=== PATIENT | female | born 1995 | race Caucasian/White ===

== ENCOUNTER 2018-01-06 18:40 | Emergency (ER) | payer MEDICAID, OTHER ==
[2018-01-06] MEDS ORDERED: Lidocaine 1% PF 5 ML VIAL ONE (19:07)
[2018-01-06] MEDS ORDERED: Azithromycin 250 MG TAB ONE (19:07)
[2018-01-06] MEDS ORDERED: cefTRIAXone\\ROCEPHIN 250 MG VIAL ONE (19:07)
[2018-01-06 19:18] LABS: Pregnancy Test - Urine (BHCG) Negative (Negative); Pregu Control Background? CLEAR/WHITE (CLR/WHITE); Pregu Control Bar Appear? YES (CONTROL BAR); Specific Gravity 1.028 (1.002-1.036)
== END 2018-01-06 19:30 | disposition home or self-care (01) ==
LOC: SCSER 18:40
DX: Z11.3 Encounter for screening for infections with a predominantly sexual mode of transmission (principal); F41.9 Anxiety disorder, unspecified; F17.210 Nicotine dependence, cigarettes, uncomplicated
CPT/HCPCS: 81025; 87491; 87591; 96372; J0696; J2001

== ENCOUNTER 2018-08-22 12:03 | Emergency (ER) | payer OTHER, SELFPAY ==
[2018-08-22 12:40] LABS: #Lymphocytes 0.5 thou/uL (1.20-3.40); #Monocytes 0.5 thou/uL (0.11-0.59); #Neutrophils 3.3 thou/uL (1.40-6.50); %Basophils 0.3 % (0.0-1.0); %Eosinophils 0.5 % (0.0-10.0); %Lymphocytes 10.4 % (21.0-51.0); %Monocytes 12.5 % (0.0-10.0); %Neutrophils 76.3 % (42.0-75.0); Hemoglobin 14.3 g/dL (12.0-16.0); Mean Corpuscular HGB CONC 33.2 g/dL (32.0-36.0); Mean Corpuscular Hemoglobin 29.1 pg (27.0-31.0); Mean Corpuscular Volume 87.8 fL (78.0-98.0); Mean Platelet Volume 6.9 fL (7.4-10.4); Platelet Count 253 thou/uL (130-400); RBC Distribution Width 12.2 % (11.5-14.5); Red Blood Cell (RBC) Count 4.93 mill/uL (4.20-5.40); White Blood Cell (WBC) Count 4.3 thou/uL (4.8-10.8)
[2018-08-22 12:49] LABS: ALT (SGPT) 19 U/L (8-55); AST (SGOT) 22 U/L (5-34); Albumin 4.4 g/dL (3.5-5.0); Alkaline Phosphatase 78 U/L (40-150); Anion Gap 17 mmol/L (10-20); BUN (Urea Nitrogen) 14 mg/dL (7.0-18.7); Bilirubin, Total 1.1 mg/dL (0.2-1.2); Calc. Creatinine Clearance 0 mL/min (70-130); Calcium 9.3 mg/dL (7.8-10.44); Carbon Dioxide 19 mmol/L (22-29); Chloride 101 mmol/L (98-107); Estimated GFR-MDRD Greater than 90; Globulin 3.3 g/dL (2.4-3.5); Glucose 94 mg/dL (70-105); Lipase 11 U/L (8-78); Protein, Total 7.7 g/dL (6.0-8.3); Sodium 133 mmol/L (136-145)
[2018-08-22 14:37] LABS: BHCG - Serum POSITIVE (NEGATIVE); Pregs Control Background? CLEAR/WHITE (CLR/WHITE); Pregs Control Bar Appear? YES (CONTROL BAR)
[2018-08-22] MEDS ORDERED: Ondansetron PF 4 MG/2 ML Vial ONE (16:01)
--- NOTE | 2018-08-22 16:08 | ULT ---
TRANSVAGINAL PELVIS ULTRASOUND: HISTORY: Pain. COMPARISON: None. TECHNIQUE: Real-time medina-scale color Doppler and spectral analysis of the pelvis was performed, transabdominal approach. FINDINGS: The uterus measures 9.1 x 9.8 x 8.3 cm. The right ovary is not seen. The left ovary measures 2.5 x 1.8 x 1.9 cm with antegrade vascular flow. There is a single viable intrauterine with an average ultrasound age of 10 weeks 0 days and an estimated date of delivery of 03/20/2019. [place]-rump length measures 3.86 cm (10 weeks 5 days). Gestational sac diameter is 3.87 cm (9 weeks 2 days). heart rate documented at 180 beats per minute. Small volume free fluid in the vaginal canal. The cervix is closed. IMPRESSION: Single viable intrauterine with an average ultrasound age of 10 weeks 0 days and an estimat ed date of delivery of 03/20/2019. POS: [facility]
== END 2018-08-22 17:00 | disposition home or self-care (01) ==
LOC: ERS 12:03
DX: O99.611 Diseases of the digestive system complicating pregnancy, first trimester (principal); K52.9 Noninfective gastroenteritis and colitis, unspecified; O99.411 Diseases of the circulatory system complicating pregnancy, first trimester; I34.0 Nonrheumatic mitral (valve) insufficiency; F41.9 Anxiety disorder, unspecified; F32.9 Major depressive disorder, single episode, unspecified; F17.210 Nicotine dependence, cigarettes, uncomplicated; Z3A.10 10 weeks gestation of pregnancy
CPT/HCPCS: 36415; 76856; 80053; 83690; 84702; 84703; 85025; 93976; 96361; 96374; J2405

== ENCOUNTER 2019-02-14 13:15 | Day surgery (SDC) | payer OTHER ==
[2019-02-14 13:52] VITALS: BP 111/67; TEMP 98.1; BMI 25.7
[2019-02-14 14:28] LABS: Bilirubin Negative (Negative); Blood, Urine Negative (Negative); Clarity CLEAR (Clear); Glucose, Urine (Dipstick) Negative (Negative); Leukocyte Trace (Negative); Nitrite Negative (Negative); Protein, Urine (Dipstick) Negative (Neg-Trace); pH, Urine 7.5 (5.0-9.0)
[2019-02-14 14:29] LABS: Bacteria/HPF Rare-Few HPF (None Seen); Hyaline Casts/LPF 0-3 HYALINE CAST LPF (0-3 Hyaline); Pathc Cast-AUWi Flag 0.13 (0-2.49); RBC/HPF 0-3 HPF (0-3); Squamous Epithelial 0-3 HPF (0-3); WBC/HPF 0-3 HPF (0-3)
--- NOTE | 2019-02-15 06:14 | SS ---
DATE OF ADMISSION: 02/14/2019 DATE OF DISCHARGE: 02/14/2019 EVALUATING PHYSICIAN: Ricardo Landis MD CHIEF COMPLAINT: Contractions. HISTORY OF PRESENT ILLNESS: Ms. Brenner is a 23-year-old white G3, P2 with estimated date of confinement of 03/24/2018, who presents complaining of contractions at approximately noon today. Of note is the fact that she had intercourse at approximately 11:00 a.m. She denies ruptured membranes, vaginal bleeding, or urinary tract symptoms. Her initial care was with Dr. Foley, but she left that practice and has been trying to get in with Dr. Abdi, but to no avail. PAST OBSTETRICAL HISTORY: Includes 2 vaginal deliveries, one at term and another one at 36 weeks. PAST MEDICAL HISTORY: Includes reported heart murmur as well as anxiety. PAST SURGICAL HISTORY: None. CURRENT MEDICATIONS: vitamins and BuSpar. ALLERGIES: NO KNOWN ALLERGIES. SOCIAL HISTORY: She smokes half a package of cigarettes per day. She denies illicit drug use. FAMILY HISTORY: Unremarkable. REVIEW OF SYSTEMS: She denies nausea, vomiting, fever, chills, ruptured membranes, or vaginal bleeding. PHYSICAL EXAMINATION: VITAL SIGNS: Vital signs in triage are stable. She is afebrile. GENERAL: She is pleasant, in no acute distress. ABDOMEN: Soft, nontender, and gravid. PELVIC: Shows the cervix to be closed, approximately 50% effaced in mid position. heart rate tracing is stable. There are no decelerations. Irritability seen. No significant uterine contractions are noted. LABORATORY STUDIES: Urinalysis returned showing a specific gravity of 1.010, negative protein, negative glucose, negative ketones, negative blood, negative nitrites with only a trace of leukocyte esterase. On microscopic, there are 0-3 rbc's, 0-3 wbc's, 0-3 squamous cells with rare bacteria. ASSESSMENT: 1. A 34 and 4/7th week intrauterine . 2. No evidence of labor at this time. PLAN: The patient will be discharged to home. I did speak with Dr. Ariana Castaneda of the residency program who will attempt to get her an appointment there so that she can begin care again. She was also advised to stop smoking. labor precautions were given prior to her discharge. Job ID: [id number]
== END 2019-02-14 14:55 | disposition home or self-care (01) ==
LOC: L&D/OP 13:15
PROVIDERS: ATTEND Obstetrics & Gynecology
DX: O47.03 False labor before 37 completed weeks of gestation, third trimester (principal); O99.333 Smoking (tobacco) complicating pregnancy, third trimester; F17.210 Nicotine dependence, cigarettes, uncomplicated; O99.343 Other mental disorders complicating pregnancy, third trimester; F41.9 Anxiety disorder, unspecified; O99.89 Other specified diseases and conditions complicating pregnancy, childbirth and the puerperium; R01.1 Cardiac murmur, unspecified; Z79.899 Other long term (current) drug therapy; Z3A.34 34 weeks gestation of pregnancy
CPT/HCPCS: 36415; 81003; 81015; 99283

== ENCOUNTER 2019-03-06 15:44 | Inpatient (IN) | payer OTHER ==
[~2019-03-06 15:44] MED LIST: Bupivacaine/Epinephrine 0.25% 30 ML VIAL ONE
[2019-03-06 16:14] VITALS: BMI 25.6
--- NOTE | 2019-03-06 17:35 | PDOC.FPROB ---
FMR OB H&P: HPI - History of Present Illness Chief Complaint: Vaginal bleeding/spotting Indentification: 23 year old at 38.0 wks by 10 wk sono History of Present Illness: 23 year old at 38.0 wks by 10.0 wk sono presents with spotting which she noticed after using the restroom approximately 1 hour prior to arrival. Patient states that she noticed the brown discharge on toilet paper when wiping. Patient denies any vaginal bleeding prior to this. Patient denies LoF, contractions. She endorses good movement. Patient denies dysuria, headache , vision changes, abdominal pain, or fever. She states that she was never treated for her BV earlier in the . 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 She smokes 5 cig/day to 1 pack per day. Denies EtOH use. Patient endorses THC use in 1/2T. - Family History Family History: HTN Lung Cancer FOB - CP, autism FMR OB H&P: Medications - Current Home Medications: Medication Instructions Recorded Confirmed Type Vit,Calc78/Iron/Folic 1 tablet PO DAILY 06/10/15 02/14/19 History [Prenatabs FA Tablet] Allergies/Adverse Reactions: Allergies Allergy/AdvReac Type Severity Reaction Status Date / Time No Known Allergies Allergy Verified 08/19/15 01:36 FMR OB H&P: ROS - Review of Systems General: denies: fever/chills, weight/appetite/sleep changes Eyes: denies: vision changes, scotomas ENT: reports: nasal congestion. denies: rhinorrhea, sore throat Cardiovascular: denies: chest pain, palpitation, edema Respiratory: denies: cough, congestion, shortness of breath Gastrointestinal: denies: abdominal pain, bloating, nausea, vomiting, diarrhea, constipation Genitourinary (Female): reports: vaginal discharge, vaginal bleeding. denies: dysuria, contractions, vaginal pressure Musculoskeletal: denies: pain Neurologic: denies: numbness, seizures, weakness Integumentary: denies: itching, rash Psychological: reports: anxiety. denies: depression FMR OB H&P: Vital Signs - Maternal Vital signs: BP113/77 Pulse 76 98.8F - Heart Tones Baseline: 130 Variability: moderate Acceleration: present Deceleration: variable Category: category 2 [place] contractions every: Irregular FMR OB H&P: Physical Exam - Physical Exam General: NAD, awake, alert and oriented HEENT: MMM, grossly normal vision, grossly normal hearing Breast: non-tender Heart: RRR Deviation from normal: 2/6 systolic murmur General: CTAB, no respiratory distress Abdomen: soft, gravid Musculoskeletal: pulses present, FROM in all four extremities Neurological: no tremor, no focal deficit Skin: no rash, capillary refill <2 seconds Lymphatic: no unusual bruising or bleeding Psychiatric: intact recent and remote memory, normal mood and affect - Pelvic Exam Vulva: normal hair distribution Cervix: no lesions SVE: At 16:15 by Yeny 1/thick/high Presentation: Cephalic Estimated Weight: 6 lbs FMR OB H&P: A/P - Problem List (1) Term Current Visit: Yes Status: Acute Code(s): Z34.90 - ENCNTR FOR SUPRVSN OF NORMAL , UNSP, UNSP TRIMESTER (2) Vaginal spotting Current Visit: Yes Status: Acute Code(s): N93.9 - ABNORMAL UTERINE AND VAGINAL BLEEDING, UNSPECIFIED Disposition: 23 year old at 38.0 wks by 10.0 wk sono presents with vaginal spotting 1. TIUP - Category II strip with variables, NST indeterminate - Will proceed with BPP to evaluate - 2h obs, may possibly d/c home if only variables on strip and BPP 04/13 - Cervical exam: 1/thick/high, very minimal brown discharge noted on glove with check - Will recheck cervix at 2h 2. 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 encouraging to apple picking supervisor medication from pharmacy if d/c'd 3. Congenital murmur - Patient sen by pediatric Cardiology from ages 6-8 - States they wanted to do surgery but Aunt did not want her to get it done since there was a chance it would resolve - Patient has been asymptomatic and is able to be active with no complications 4. Late transfer of care - Prior care at [facility] 5. Hx of tobacco use - Encouraged cessation during 6. Marijuana use - Most recent UDS negative 7. Hx of GC - Negative during this 8. FOB FH: CP, autism 9. BRAD - On buspirone intermittently during (noncompliant) - Reports well controlled currently Discussion: Date/Time: 03/06/19 4541 This H&P was discussed with Dr. Lewis who agrees with the above documentation and plan. OBGYN Faculty: BPP was 04/13, but on looking at recent sono from the [facility]...EFW was 1%- tile...isolated IUGR. Per ACOG Bulletin, delivery recommended at 38 weeks. I have discussed this with the pateint and her partner. She is think and a smoker but unsure if that is enough to result in this level of IUGR. She does state HX Marijuana use. We will order a UDS for eval. Case D/U RN team as well as Dr Bordne. Reviewed with Dr Saini Signature: Darlin Saini, DO PGY-3
[2019-03-06] MEDS ORDERED: hydrALAZINE 20 MG/ML VIAL SLOW IVP PRN ×2 (17:40→20:02)
[2019-03-06 17:52] LABS: Bilirubin Negative (Negative); Blood, Urine Negative (Negative); Clarity CLEAR (Clear); Glucose, Urine (Dipstick) Negative (Negative); Leukocyte Negative (Negative); Nitrite Negative (Negative); Protein, Urine (Dipstick) Negative (Neg-Trace); Urobilinogen 0.2 mg/dL (0.2-1.0)
[2019-03-06 17:54] LABS: Bacteria/HPF None Seen HPF (None Seen); Hyaline Casts/LPF 0-3 HYALINE CAST LPF (0-3 Hyaline); RBC/HPF 0-3 HPF (0-3); Squamous Epithelial None Seen HPF (0-3); WBC/HPF 0-3 HPF (0-3)
--- NOTE | 2019-03-06 18:18 | PDOC.EVN ---
Event Note - Event Note Event Note: OBGYN Faculty H&P Attestation note Time: 1814 Cc: spotting HPI: Patient of the [facility], here for spotting. She is a 23 yo last one was term, but first was around 36 weeks. EGA now 38 weeks. No LOF, no VB, good FM. Review of Systems: past HX anxiety on meds PRN (Buspirone); HX childhood cardiac murmur...no meds, nocards follow up. [place] Heart class I Past med: HX anxiety, past murmur- ASX Past surg: none Allergies: none OB Hx: no CS Physical: 113/77 afebrile P76 NAD soft NT abd no VB no LOF CX= / Monitor: rate at 140s with great variability, accels, but noted sporadic decels [place]: rare CTX Assessment and Plan: Early term with spotting...no evidence labor. We will order BPP to assess occ decels If decels continue, may need IOL
[2019-03-06] MEDS ORDERED: Lactated Ringer's 1,000 ML IV SCH (18:45)
--- NOTE | 2019-03-06 19:52 | ULT ---
US Biophysical Profile: 03/06/2019 6:14 PM CLINICAL HISTORY: Variable decelerations and equivocal stress test. COMPARISON: None. FINDINGS: heart rate: 130 bpm. ZENA: 10.7 cm Biophysical profile: 8 of 8 IMPRESSION: Normal biophysical profile
[2019-03-06] MEDS ORDERED: Promethazine HCl 25 MG/ML VIAL IM PRN ×2 (20:02→23:32)
[2019-03-06] MEDS ORDERED: Ondansetron PF 4 MG/2 ML Vial IVP PRN ×2 (20:02→23:32)
[2019-03-06] MEDS ORDERED: Acetaminophen 500 MG TAB PO PRN (20:02)
[2019-03-06] MEDS ORDERED: Butorphanol Tartrate 1 MG/ML VIAL SLOW IVP PRN (20:02)
--- NOTE | 2019-03-06 20:02 | PDOC.EVN ---
Event Note - Event Note Event Note: 03/06/2019 at 20:00 35.4 wk sono found in [facility] clinic records. [place] <1% with EFW 1826g. Risk factors for IUGR include smoking history. Will obtain UDS. Will plan for IOL for IUGR given patient is 38.0 wks. Notified [facility]ide Pot Tender, Dr. Draper who is aware of isolated IUGR. Will plan for balloon placement. Darlin Saini, DO PGY-3 OBGYN Fcaulty: EFW noted as under 1% tile. Communicated directly by me to Dr Borden. BPP 04/13..we will proceed with IUGR at this time. Reviewed with patient and partner.
[2019-03-06] MEDS ORDERED: Ibuprofen 800 MG TAB PO PRN (20:24)
[2019-03-06] MEDS ORDERED: Lidocaine 1% (PF) 30 ML VIAL SC PRN (20:24)
[2019-03-06] MEDS ORDERED: NS / Oxytocin 40 units/1000ml 1,000 ML IV PRN (20:24)
--- NOTE | 2019-03-06 21:13 | PDOC.LDPN ---
Labor & Delivery Progress Note - Subjective Subjective: comfortable (BP 116/72, pulse 72) - Objective Vital signs reviewed and normal: yes General: NAD Dilation: 1 Effacement: 0% Station: -3 FHT: category 1 (125/mod/no accel/no decel) [place] contractions every: sporadic - Assessment (1) Encounter for induction of labor Code(s): Z34.90 - ENCNTR FOR SUPRVSN OF NORMAL , UNSP, UNSP TRIMESTER Current Visit: Yes Status: Acute (2) IUGR (intrauterine growth restriction) Current Visit: Yes Status: Acute (3) Term Code(s): Z34.90 - ENCNTR FOR SUPRVSN OF NORMAL , UNSP, UNSP TRIMESTER Current Visit: Yes Status: Acute Plan: labor augmentation -: 23 year old at 38.0 wks by 10.0 wk sono presents with vaginal spotting and is admitted for IOL due to IUGR IOL for severe IUGR - Category I strip (previously had Cat 2 strip for variables) - BPP 8/8, [place] <1% with EFW 1826g - Cervical exam: 1/thick/high @ 2100, Cook balloon placed and filled to 40/40mL. - UDS pending Per package instructions: Balloon placed using sterile speculum to visualize cervix. Uterine balloon was dilated with 40mL. Vaginal balloon then dilated to 20mL. Verified correct placement, speculum removed. Another 20mL added to vaginal balloon. Plan to gradually increase inflation to 80/80mL.
[2019-03-06 21:38] LABS: Hemoglobin 12.4 g/dL (12.0-16.0); Mean Corpuscular HGB CONC 33.8 g/dL (32.0-36.0); Mean Corpuscular Hemoglobin 30.9 pg (27.0-31.0); Mean Corpuscular Volume 91.5 fL (78.0-98.0); Platelet Count 248 thou/uL (130-400); RBC Distribution Width 12.4 % (11.5-14.5); Red Blood Cell (RBC) Count 4.02 mill/uL (4.20-5.40); White Blood Cell (WBC) Count 10.6 thou/uL (4.8-10.8)
[2019-03-06 22:14] LABS: Syphilis Antibody Nonreactive (Nonreactive); Syphilis Antibody Index 0.02 S/CO (<1.00 Non-Reactive)
[2019-03-06] MEDS ORDERED: Fentanyl 4 mcg/Bup 0.1% Cadd 100 ML ONE (23:07)
[2019-03-06 23:26] LABS: HBSAg Index 0.24 S/CO (0-0.99); Hep B Surf Ag Non-Reactive S/CO (NonReactive)
[2019-03-06] MEDS ORDERED: Acetaminophen 325 MG TAB PO PRN (23:32)
[2019-03-06] MEDS ORDERED: Naloxone HCl 0.4 mg/ml Vial IVP PRN ×2 (23:32)
[2019-03-06] MEDS ORDERED: ePHEDrine/0.9% NaCl/PF SYRINGE 50 mg/10 ml SLOW IVP PRN (23:32)
[2019-03-06] MEDS ORDERED: diphenhydrAMINE 50 MG/ML VIAL IVP PRN (23:32)
[2019-03-06] MEDS ORDERED: Lactated Ringer's 500 ML IV PRN (23:32)
[2019-03-06] MEDS ORDERED: Communication Order-Pharmacy FS SCH (23:45)
[2019-03-06] MEDS ORDERED: Fentanyl 4 mcg/Bupivacaine 0.1% Cassette 100 ML EPIDURAL SCH (23:45)
[2019-03-07 00:03] LABS: Amphetamine Not Detected (NotDetected); Barbiturates Screen Not Detected (NotDetected); Benzodiazepine Screen Not Detected (NotDetected); Cocaine Metabolite Screen Not Detected (NotDetected); Medtox Control Line Valid? VALID (VALID); Medtox Reader # READER 1; Methadone Not Detected (NotDetected); Methamphetamine Not Detected (NotDetected); Opiate Screen Not Detected (NotDetected); Oxycodone Screen Not Detected (NotDetected); Phencyclidine (PCP) Not Detected (NotDetected); THC/Cannabinoid Screen Not Detected (NotDetected); Tricyclic Screen Not Detected (NotDetected)
[2019-03-07] MEDS: Lactated Ringer's 1,000 ML IV SCH ×2 (00:40→04:53)
--- NOTE | 2019-03-07 01:15 | PDOC.LDPN ---
Labor & Delivery Progress Note - Subjective Subjective: comfortable, no concerns - Objective Vital signs reviewed and normal: yes General: NAD, resting Uterine fundus: non tender FHT: category 2, variability present, absent or minimal variables [place] contractions every: infrequent Other exam findings: cook's balloon in place - Assessment (1) Encounter for induction of labor Code(s): Z34.90 - ENCNTR FOR SUPRVSN OF NORMAL , UNSP, UNSP TRIMESTER Current Visit: Yes Status: Acute (2) IUGR (intrauterine growth restriction) Current Visit: Yes Status: Acute (3) Term Code(s): Z34.90 - ENCNTR FOR SUPRVSN OF NORMAL , UNSP, UNSP TRIMESTER Current Visit: Yes Status: Acute Plan: continue plan of care -: Plan: labor augmentation -: 23 yo at 38.0 wks by 10.0 wk sono presents with vaginal spotting, admitted for IOL due to IUGR IOL for severe IUGR - Generally Category I strip but 1 prolong decel down to 70s. Responded to maternal 02, repositioning, and fluid bolus. Will continue to monitor strip and d/c balloon if decels continue. Recheck in 2 hours (0330) - BPP 8/8, [place] <1% with EFW 1826g - Cook balloon still in place and filled to 80/80mL.
--- NOTE | 2019-03-07 04:29 | PDOC.LDPN ---
Labor & Delivery Progress Note - Subjective Subjective: comfortable - Objective Abnormal vital signs: BP 87/53 General: NAD, resting, breathing through contractions Uterine fundus: non tender SVE: 6/80/-1 Dilation: 6 Effacement: 75% Station: -1 FHT: category 2, variable decelerations [place] contractions every: 3-5 AROM: bloody fluid IUPC placed: yes FSE placed: yes - Assessment (1) Encounter for induction of labor Code(s): Z34.90 - ENCNTR FOR SUPRVSN OF NORMAL , UNSP, UNSP TRIMESTER Current Visit: Yes Status: Acute (2) IUGR (intrauterine growth restriction) Current Visit: Yes Status: Acute (3) Term Code(s): Z34.90 - ENCNTR FOR SUPRVSN OF NORMAL , UNSP, UNSP TRIMESTER Current Visit: Yes Status: Acute Plan: continue plan of care -: 23 yo at 38.0 wks by 10.0 wk sono presents with vaginal spotting, admitted for IOL due to IUGR IOL for severe IUGR - Category 2 strip with multiple variables and prolonged Deceleration. Cook's Balloon pulled and repositioned to hands and knees. -Maternal repositioning, IVF and O2 as needed for Cat 2 strips and variables. - Will continue to monitor strip. Recheck in 2 hours (06:00) - BPP 8/8, [place] <1% with EFW 1826g SROM at 03:50, with bloody fluid. 6/80%/-1 Contractions every 3-5 minutes. FSE and IUPC in place. FHR 120's now, with moderate variability and variables.
[2019-03-07] MEDS ORDERED: Oxytocin 10 UNITS/ML VIAL ONE (06:41)
[2019-03-07] MEDS ORDERED: Ondansetron PF 4 MG/2 ML Vial ONE (06:41)
[2019-03-07] MEDS ORDERED: MORPHINE 5 MG/10 ML PF VIAL ONE (06:41)
[2019-03-07] MEDS ORDERED: Dexamethasone 4 mg/ml Vial ONE (06:41)
[2019-03-07] MEDS ORDERED: Ketorolac Tromethamine 30 MG/ML VIAL ONE (06:44)
[2019-03-07] MEDS ORDERED: Lidocaine 1% (PF) 30 ML VIAL ONE (06:46)
[2019-03-07] MEDS ORDERED: ePHEDrine/0.9% NaCl/PF SYRINGE 50 mg/10 ml ONE (06:57)
[2019-03-07] MEDS ORDERED: Phenylephrine HCL 10 MG/ML VIAL ONE (06:57)
[2019-03-07] MEDS: Ketorolac Tromethamine 30 MG/ML VIAL IVP SCH ×3 (07:05→19:53)
[2019-03-07 07:12] LABS: pH (Cord, venous) 7.32 (7.32-7.43)
[2019-03-07] MEDS ORDERED: Bupivacaine 0.25% HCL 30 ML VIAL ONE (07:12)
--- NOTE | 2019-03-07 07:31 | PDOC.EVN ---
Event Note - Event Note Event Note: Late entry Preop CS note Time: 729 At approx 0640, I was called for severe variable decels and kym...we proceeded to a stat CS for cat 2 strip with severe decels. See op note
--- NOTE | 2019-03-07 07:32 | PDOC.OPDEL ---
OB Operative/Delivery Note Delivery Dr/Surgeon: Yeny Assist: (Eddiey and speech correction assistant): Joshua Pre-Delivery Diagnosis: active labor, other (IUGR at less than 1%tile, severe decels) Procedure/Post Delivery Dx: primary low transverse CS (pfannenstiel; 2 layer uterine closure) Anesthesia: epidural - Findings A Weight: 4 lb 13 oz - Additional Findings/Plan Placenta delivered: spontaneous (3 vc...extremely hypowound cord, small placenta...to path) findings: low transverse hysterotomy without extension, normal uterus, normal tubes, normal ovaries, other (vigorous female ; no resus. Cord gas not sent as cord was to "atrophic".) Estimated blood loss: 300; QBL pending Compilations/Other Findings: IVF: 600ml UOP: 300ml clear ABX: ancef and zmax per protocol SKIN SUTURED Post delivery plan: routine recovery
[2019-03-07] MEDS ORDERED: HYDROmorphone 2 MG/ML VIAL SLOW IVP PRN (07:34)
[2019-03-07] MEDS ORDERED: Promethazine HCl 25 MG/ML VIAL IM PRN (07:34)
[2019-03-07] MEDS ORDERED: L&D-Morphine 4 MG/ML VIAL SLOW IVP PRN (07:34)
[2019-03-07] MEDS ORDERED: Promethazine HCl 25 MG SUPP PR PRN (07:34)
[2019-03-07] MEDS ORDERED: diphenhydrAMINE 50 MG/ML VIAL IVP PRN (07:34)
[2019-03-07] MEDS ORDERED: Ondansetron PF 4 MG/2 ML Vial IVP PRN (07:34)
[2019-03-07] MEDS ORDERED: Naloxone HCl 0.4 mg/ml Vial IV PRN (07:34)
[2019-03-07] MEDS ORDERED: Naloxone HCl 0.4 mg/ml Vial IVP PRN ×2 (07:34)
[2019-03-07] MEDS ORDERED: Meperidine HCl/PF 25 MG/ML VIAL SLOW IVP PRN (07:34)
[2019-03-07] MEDS ORDERED: Ondansetron HCl/PF 4 MG/2 ML Vial IVP PRN (07:34)
[2019-03-07] MEDS ORDERED: Communication Order-Pharmacy FS SCH (07:45)
[2019-03-07] MEDS ORDERED: Ketorolac Tromethamine 30 MG/ML VIAL IVP SCH (07:45)
--- NOTE | 2019-03-07 07:56 | OP ---
DATE OF PROCEDURE: 03/07/2019 TIME OF DELIVERY: Roughly 0650 hours. LOCATION: Labor and Delivery OR. PREOPERATIVE DIAGNOSIS: This is a patient who is at term by good dates with suspected growth restriction at less than the first percentile with decelerations after spontaneous rupture of membranes and induction of labor. POSTOPERATIVE DIAGNOSES: 1. Same as above. 2. Status post primary section. PROCEDURES PERFORMED: 1. Primary low-transverse section via Pfannenstiel skin incision. 2. Two-layer uterine closure. SURGEON: Darlin Saini DO ACCOUNT SERVICE ASSOCIATE: (materials assistant/faculty) is myself, Ar Lewis. ANESTHESIA: Labor epidural. ANTIBIOTICS: Ancef and Zithromax per protocol. ESTIMATED BLOOD LOSS: About 300 mL. The QBL is pending. IV FLUIDS: About 600 to 700 mL crystalloid. URINE OUTPUT: About 300 mL clear urine by Thompson. COMPLICATIONS: None. COUNTS: Correct. FINDINGS: 1. There is a vigorous, but overtly symmetrically growth restricted fetus. Baby is female. 2. Normal uterus, tubes, and ovaries. 3. Severely restricted in size placenta and hypo wound status hypo-wound umbilical cord. 4. Umbilical arterial gas attempted, but due to the thin and atrophic nature of the tube, it is likely a mixed sample, so it is limited. 5. NICU in attendance. 6. Baby was spontaneous with no need for bag-mask or other resuscitation. 7. Hemostasis post repair. 8. The weight was 4 pounds and 13 pounces. PATHOLOGY: Placenta. DISPOSITION: To recovery room in good and stable condition. INDICATION: This is a patient, who was admitted yesterday on March 06, 2019 after she presented to Labor and Delivery with spotting. It was confirmed by a ultrasound done in the clinic that the child was less than one percentile. Because she was at term with isolated growth restriction, she was kept and given a Semanticator cervical balloon for cervical ripening. She had spontaneous rupture of membranes in the morning of March 07 before her and was noted to have severe D cells close to 0700 when she was called for a stat . DESCRIPTION OF PROCEDURE: The patient was taken to the operating room in a rapid manner and the abdomen was prepped and draped in the usual sterile fashion. A Pfannenstiel skin incision was made with the scalpel approximately 2 fingerbreadths above the pubic bone. Next, using sharp dissection, the fascia was identified and entered in a transverse fashion in the usual manner. Care was taken to avoid the underlying structures. Rectus muscles were off the fascia both superiorly and inferiorly off the midline with blunt dissection. Rectus muscles were away from the midline and the underlying peritoneum was entered bluntly. A bladder blade and a Nicole retractor were used for visualization. A low-transverse hysterotomy was made with a scalpel. Baby was in a cephalic presentation and the baby was delivered atraumatically. There were two nuchal cords around the baby' s neck, which were reduced prior to delivery. Baby was delivered without complication. After the baby was delivered, the uterus was gently massaged out of the uterine cavity and it was intact. Curettage of the uterine cavity revealed absence of retained products of conception. Uterus was closed in a two-layer closure using #1 Monocryl suture. First layer was running locking and the 2nd was imbricating nonlocking. After confirming hemostasis, the parietal peritoneum was closed with 2-0 chromic in the usual running nonlocking fashion. Rectus muscles were now closed. After confirming hemostasis, the subcutaneous tissue was closed with 2-0 plain gut using [address] skin tension. As subcutaneous tissue was less than 2 cm, continuous subcu closure was not done. The skin was closed with 4-0 Monocryl in a running subcuticular stitch. The patient tolerated the procedure well and she will go to routine recovery. Job ID: [id number] [facility]
[2019-03-07] MEDS ORDERED: Morphine 10 MG/ML CARPUJECT SLOW IVP PRN (08:00)
[2019-03-07] MEDS ORDERED: HYDROcodone/Acetaminophen 5/325 mg Tablet PO PRN (10:51)
[2019-03-07] MEDS ORDERED: Bupivacaine/Epinephrine 0.25% 30 ML VIAL ONE (18:00)
[2019-03-07] MEDS: Simethicone Chewable 80 MG TAB PO PRN (18:46)
[2019-03-07] MEDS ORDERED: Sodium Chloride 0.9% 10 ML ONE (19:46)
[2019-03-08] MEDS: HYDROcodone/Acetaminophen 5/325 mg Tablet PO PRN (04:05)
[2019-03-08] MEDS: Simethicone Chewable 80 MG TAB PO PRN (04:05)
[2019-03-08] MEDS: Ketorolac Tromethamine 30 MG/ML VIAL IVP SCH (04:07)
[2019-03-08 05:18] LABS: Hemoglobin 9.8 g/dL (12.0-16.0); Mean Corpuscular HGB CONC 33.9 g/dL (32.0-36.0); Mean Corpuscular Hemoglobin 31.4 pg (27.0-31.0); Mean Corpuscular Volume 92.7 fL (78.0-98.0); Mean Platelet Volume 7.3 fL (7.4-10.4); Platelet Count 200 thou/uL (130-400); RBC Distribution Width 12.6 % (11.5-14.5); Red Blood Cell (RBC) Count 3.11 mill/uL (4.20-5.40); White Blood Cell (WBC) Count 10.7 thou/uL (4.8-10.8)
[2019-03-08] MEDS: Ibuprofen 800 MG TAB PO SCH ×3 (05:19→22:18)
--- NOTE | 2019-03-08 05:59 | PDOC.OBPPN ---
FMR OB PN: Subj - Interval History Hospital Day: 2 Day: 2 Chief Complaint: abdominal pain post PTLCS Indentification: 23yo delivered on 03/07 @ 6:50 via PTLCS @ 38.1 wks by 10 wk sono Interval History: Ambulating, eating, passing flatus. Light-headed when walking. Breastfeeds FMR OB PN: Obj - Maternal Vital signs: BP: [92/55] HR: [83] RR: [18] Tmax: [97.9] Pox: []% on [] Wt: [63.5kg on admission] - Urine output I&O: 03/06/19 03/07/19 03/08/19 06:59 06:59 06:59 Intake Total 2380 Output Total 3100 Balance -720 - Lochia Lochia: moderate, less than yesterday. 1 clot this morning - Pain Management Pain scale: 3 (when patient is moving) Intervention: oral medication (Acetaminophen, [place], IBP) FMR OB PN: Exam - Physical Exam General: NAD, awake, alert and oriented HEENT: normocephalic and atraumatic, EOMI Chest: non-tender to palpation Breast: symmetric, non-tender, no erythema Heart: RRR, other (3/6 holosystolic murmur) General: CTAB, no respiratory distress, good air movement, no rales/rhonchi, no wheezing, no retractions Abdomen: soft, fundus(cm) (firm, 2cm below umbilicus), bowel sound present, no masses, no hernias Deviation from normal: pain with palpation of right shoulder. Neurological: no focal deficit Skin: no rash, good tugor : bandage intact, incision healing well, no erythema, no edema, no drainage, appropriately tender Lymphatic: no unusual bruising or bleeding Psychiatric: normal mood and affect (Reports that she feels relaxed. No symptoms of depression, anxiety.) FMR OB PN: Data - Labs Lab results: Laboratory Results - last 24 hr 03/07/19 03/07/19 03/08/19 06:50 06:50 04:54 WBC 10.7 RBC 3.11 L Hgb 9.8 L Hct 28.8 L MCV 92.7 MCH 31.4 H MCHC 33.9 RDW 12.6 Plt Count 200 MPV 7.3 L Cord ABG pH 7.32 Cord ABG PCO2 (E[place]) 47.0 Cord ABG HCO3 23.8 Cord ABG Base Excess -2.7 L Cord VBG pH 7.32 Cord VBG pCO2 48.3 H Cord VBG HCO3 24 Cord VBG Base Excess -2.4 L FMR OB PN: A/P - Problem List (1) delivery delivered Current Visit: Yes Status: Acute Code(s): O82 - ENCOUNTER FOR DELIVERY WITHOUT INDICATION (2) Term Current Visit: Yes Status: Acute Code(s): Z34.90 - ENCNTR FOR SUPRVSN OF NORMAL , UNSP, UNSP TRIMESTER (3) anemia Current Visit: Yes Status: Acute Code(s): O90.81 - ANEMIA OF THE PUERPERIUM (4) Encounter for induction of labor Current Visit: Yes Status: Acute Code(s): Z34.90 - ENCNTR FOR SUPRVSN OF NORMAL , UNSP, UNSP TRIMESTER (5) IUGR (intrauterine growth restriction) Current Visit: Yes Status: Acute Disposition: A: 23 yo delivered on 03/07 @ 6:50 via PTLCS @ 38.1 wks by 10 wk sono 2/2 NRFHT Term , delivery - Post op day #1 s/p PTLCS. cEBL 1066ml - Ambulated this morning, reported that she "overdid it" and felt light-headed and hot. Encourage ambulation as tolerated - Tolerating PO - Lochia moderate with 1 clot this morning, less than yesterday. - Encourage breast-feeding - Pain score 3/10 when moving. Patient reports well-controlled pain with motrin and norco. Continue pain control. anemia -H/H 03/06 predelivery 12.4/36.7 -H/H 7/ 9.8/28.8 -cEBL 1066ml -begin iron supplementation -continue to monitor Dispo: anticipate further recovery today and possible discharge tomorrow. Discussion: Date/Time: 03/08/19 0557 This H&P was discussed with [Marilyn Hampton] who agree with the above documentation and plan.
[2019-03-08] MEDS ORDERED: Adacel (T-DAP) 0.5 ML SYRINGE IM ONE (09:00)
[2019-03-08] MEDS: Docusate 100 MG CAP PO PRN (09:09)
[2019-03-08] MEDS: Ferrous Sulfate 325 MG TAB PO SCH ×2 (09:09→17:13)
[2019-03-08] MEDS ORDERED: Lanolin Ointment 7 GM TUBE TOP PRN (10:48)
--- NOTE | 2019-03-09 06:56 | PDOC.OBPPN ---
FMR OB PN: Subj - Interval History Hospital Day: 3 Day: 2 Indentification: 23 yo del 03/07 @ 650 via PTLCS @ 38.1 wks by 10 wk sono 10/08 NRFHT Interval History: Doing well. Ambulating, passing flatus, having bm, breast feeding FMR OB PN: Obj - Maternal Vital signs: BP: [110/54] HR: [74] RR: [17] Tmax: [97.6] Pox: []% on [] Wt: [] - Urine output I&O: 03/07/19 03/08/19 03/09/19 06:59 06:59 06:59 Intake Total 3380 Output Total 3900 Balance -520 - Lochia Lochia: Same as yesterday, moderate like a normal period. - Pain Management Pain scale: 3 (while moving) Intervention: oral medication (IBP, norco) FMR OB PN: Exam - Physical Exam General: NAD HEENT: normocephalic and atraumatic, EOMI Chest: non-tender to palpation Breast: symmetric, no erythema Heart: RRR, other (3/6 holosystolic murmur) General: CTAB, no respiratory distress, good air movement, no rales/rhonchi, no wheezing, no retractions Abdomen: soft, fundus(cm) (2cm below umbilicus), other (tender with palpation) Musculoskeletal: pulses present Skin: no rash, good tugor : bandage intact, incision healing well, appropriately tender Lymphatic: no unusual bruising or bleeding - Pelvic Exam : normal lochia FMR OB PN: A/P - Problem List (1) delivery delivered Current Visit: Yes Status: Acute Code(s): O82 - ENCOUNTER FOR DELIVERY WITHOUT INDICATION (2) Term Current Visit: Yes Status: Acute Code(s): Z34.90 - ENCNTR FOR SUPRVSN OF NORMAL , UNSP, UNSP TRIMESTER (3) anemia Current Visit: Yes Status: Acute Code(s): O90.81 - ANEMIA OF THE PUERPERIUM (4) Encounter for induction of labor Current Visit: Yes Status: Acute Code(s): Z34.90 - ENCNTR FOR SUPRVSN OF NORMAL , UNSP, UNSP TRIMESTER (5) IUGR (intrauterine growth restriction) Current Visit: Yes Status: Acute Disposition: Term , delivery - Post op day #2 s/p PTLCS. cEBL 1066ml - Ambulating well. No more light-headedness or feeling "hot." Encourage ambulation as tolerated - Tolerating PO - Passing flatus, BM yesterday - Lochia moderate, same as yesterday. - Encourage breast-feeding - Pain score 3/10 when moving. Patient reports well-controlled pain with motrin and norco. Continue pain control. - Mom requested breast pump script that she can take to [facility] for a pump - She does not have a PCP, would like to see someone at [facility]. Requested Dr. Hampton - Would like nexplanon or IUD as contraception after d/c from hospital - She reports that she would like to stay one more night for additional care before d/c tomorrow anemia -H/H 03/06 predelivery 12.4/36.7 -H/H 7/ 9.8/28.8 -cEBL 1066ml -iron supplementation started yesterday, continue -continue to monitor Dispo: anticipate d/c tomorrow Discussion: Date/Time: 03/09/19 6525 This H&P was discussed with [Lewis] who agrees with the above documentation and plan.
--- NOTE | 2019-03-09 07:21 | PDOC.PP ---
Post Progress Note Post Day #: 2 Subjective: Doing well, POD2 PO intake tolerated: yes Flatus: yes Ambulation: yes Vital Signs (12 hours) Temp Pulse Resp BP Pulse Ox 03/08/19 20:00 97.6 F 74 17 110/54 L 100 Weight Weight 140 lb - Physical Examination General: NAD Cardiovascular: no m/r/g Respiratory: clear to auscultation bilaterally Abdominal: + bowel sounds, lochia, no distention, appropriately TTP Skin: CS incision dry & intact Neurological: no gross focal deficits Psychiatric: A&Ox3, normal affect Result Diagrams: 03/08/19 04:54 Additional Labs: Post Labs Blood Type A POSITIVE 03/06/19 18:37 Hep Bs Antigen Non-Reactive S/CO (NonReactive) 03/06/19 21:28 (1) Term Code(s): Z34.90 - ENCNTR FOR SUPRVSN OF NORMAL , UNSP, UNSP TRIMESTER Status: Acute (2) Vaginal spotting Code(s): N93.9 - ABNORMAL UTERINE AND VAGINAL BLEEDING, UNSPECIFIED Status: Acute (3) delivery delivered Code(s): O82 - ENCOUNTER FOR DELIVERY WITHOUT INDICATION Status: Acute - Assessment/Plan POD 2 doing well. Baby with IUGR at delivery. Continue postop care. Possible DC POD3 tomorrow
[2019-03-09] MEDS: Ferrous Sulfate 325 MG TAB PO SCH ×2 (09:09→18:02)
[2019-03-09] MEDS: Docusate 100 MG CAP PO PRN (09:09)
[2019-03-09] MEDS: Ibuprofen 800 MG TAB PO SCH ×2 (09:09→18:02)
[2019-03-09] MEDS: Simethicone Chewable 80 MG TAB PO PRN (09:10)
[2019-03-09] MEDS: HYDROcodone/Acetaminophen 5/325 mg Tablet PO PRN (10:22)
[2019-03-10] MEDS: Ibuprofen 800 MG TAB PO SCH ×2 (01:39→06:29)
--- NOTE | 2019-03-10 05:49 | PDOC.OBPPN ---
FMR OB PN: Subj - Interval History Hospital Day: 4 Day: 3 Indentification: 23yo del 03/07 @ 650 via PTLCS @ 38.1 by 10 wk sono 2/2 NRFHT Interval History: Ambulating, passing flatus,+ BM, adequate pain management, denies depression FMR OB PN: Obj - Maternal Vital signs: BP: [110/54] HR: [74] RR: [17] Tmax: [97.6] Pox: []% on [] Wt: [] - Urine output I&O: 03/08/19 03/09/19 03/10/19 06:59 06:59 06:59 Intake Total 3380 Output Total 3900 Balance -520 - Lochia Lochia: moderate, similar to period, same as yesterday - Pain Management Pain scale: 3 Intervention: oral medication (motrin, norco) FMR OB PN: A/P - Problem List (1) delivery delivered Status: Acute Code(s): O82 - ENCOUNTER FOR DELIVERY WITHOUT INDICATION (2) Term Status: Acute Code(s): Z34.90 - ENCNTR FOR SUPRVSN OF NORMAL , UNSP, UNSP TRIMESTER (3) anemia Status: Acute Code(s): O90.81 - ANEMIA OF THE PUERPERIUM (4) Encounter for induction of labor Status: Acute Code(s): Z34.90 - ENCNTR FOR SUPRVSN OF NORMAL , UNSP, UNSP TRIMESTER (5) IUGR (intrauterine growth restriction) Status: Acute Disposition: Term , delivery - Post op day #3 s/p PTLCS. cEBL 1066ml - Ambulating well. No more light-headedness or feeling "hot." Encourage ambulation as tolerated - Tolerating PO - Passing flatus, BM x 2 - Lochia moderate, same as yesterday. - Encourage breast-feeding - Pain score 3/10 when moving. Patient reports well-controlled. D/C with motrin. - Mom requested breast pump script that she can take to [facility] for a pump - She does not have a PCP, would like to see someone at [facility]. Requested Dr. Hampton - Would like nexplanon or IUD as contraception after d/c from hospital anemia -H/H 03/06 predelivery 12.4/36.7 -H/H 7 9.8/28.8 -cEBL 1066ml -will d/c with PNV with iron + docusate Dispo: d/c today Discussion: Date/Time: 03/10/19 5280 This H&P was discussed with Dr. Reyes] who agree with the above documentation and plan. Addendum - Attending - Attending Attestation Date/Time: 03/11/19 1837 I evaluated the patient and discussed the management with Dr. Reynoso I agree with the Assessment and Plan documented above.
[2019-03-10] MEDS: HYDROcodone/Acetaminophen 5/325 mg Tablet PO PRN ×2 (06:29→09:24)
[2019-03-10 08:04] VITALS: BP 101/53; TEMP 97.9
[2019-03-10] MEDS: Ferrous Sulfate 325 MG TAB PO SCH (09:24)
== END 2019-03-10 12:57 | disposition home or self-care (01) | DRG 787 ==
LOC: L&D/OP 15:44 → L&D 18:25 → 3SW 03-07 09:42
PROVIDERS: ADMIT Obstetrics & Gynecology; ATTEND Obstetrics & Gynecology
PROC: 10D00Z1 Extraction of Products of Conception, Low, Open Approach (ICD-10-PCS; principal; 2019-03-07)
PROC: 3E0P7VZ Introduction of Hormone into Female Reproductive, Via Natural or Artificial Opening (ICD-10-PCS; 2019-03-07)
PROC: 3E033VJ Introduction of Other Hormone into Peripheral Vein, Percutaneous Approach (ICD-10-PCS; 2019-03-07)
DX: O36.5930 Maternal care for other known or suspected poor fetal growth, third trimester, not applicable or unspecified (principal); O99.324 Drug use complicating childbirth; O99.344 Other mental disorders complicating childbirth; F41.1 Generalized anxiety disorder; O99.334 Smoking (tobacco) complicating childbirth; F17.210 Nicotine dependence, cigarettes, uncomplicated; F12.980 Cannabis use, unspecified with anxiety disorder; O76 Abnormality in fetal heart rate and rhythm complicating labor and delivery; O61.0 Failed medical induction of labor; D64.9 Anemia, unspecified; O90.81 Anemia of the puerperium; Z3A.38 38 weeks gestation of pregnancy; Z37.0 Single live birth
CPT/HCPCS: 36415; 51702; 76819; 80306; 81001; 82805; 85027; 86780; 86850; 86900; 86901; 87340; 88307; 90715; 99285; C1726; J0690; J1100; J1885; J2001; J2274; J2370; J2405; J2590; S0020

== ENCOUNTER 2020-07-09 10:45 | Day surgery (SDC) | payer OTHER ==
[2020-07-09 11:30] VITALS: BMI 26.5
[2020-07-09] MEDS ORDERED: hydrALAZINE 20 MG/ML VIAL SLOW IVP PRN (11:46)
--- NOTE | 2020-07-09 13:37 | ULT ---
Limited OB ULTRASOUND: HISTORY: Vaginal bleeding FINDINGS: A single live intrauterine gestation is seen with measurements corresponding to an estimated gestatio nal age of 34 weeks 5 daysand EDDIE at 08/15/2020. The estimated weight measures 2327 g or 5 pounds in 2 ounces (2% by Hadlock criteria). biometry: BPD: 8.57 cm, 34 weeks 4 days HC: 31.54 cm, 35 weeks 3 days AC: 30.02 cm, 34 weeks 0 days FL: 6.46 cm, 33 weeks 2 days heart rate: 131bpm Placenta: Anterior Placenta previa: No ZENA: 12.4cm Cervical length: 3.5cm IMPRESSION: Single live intrauterine gestation of 34 weeks 5 daysestimated gestational age and EDDIE at 08/15/2020
--- NOTE | 2020-07-10 02:20 | SS ---
DATE OF ADMISSION: 07/09/2020 DATE OF DISCHARGE: 07/09/2020 EVALUATING PHYSICIAN: Ricardo Landis MD CHIEF COMPLAINT: Spotting at home. HISTORY OF PRESENT ILLNESS: Ms. Brenner is a 25-year-old white G4, P3- 0-0-3 with a reported estimated date of confinement of sometime in late July, who presents complaining of vaginal spotting. She denies associated contractions or ruptured membranes. The patient has had no substantial care, but does state that she had an ultrasound at [facility] at approximately 20 weeks. Of note is the fact that she states she has a scheduled appointment with Dr. Abdi in two days. PAST OBSTETRICAL HISTORY: Includes 2 vaginal deliveries and one section done here. The op report here states that it was done for severe IUGR and distress. PAST MEDICAL HISTORY: Heart murmur. PAST SURGICAL HISTORY: as above. CURRENT MEDICATIONS: vitamins. ALLERGIES: NO KNOWN ALLERGIES. SOCIAL HISTORY: She states she continues to smoke during this . She denies illicit drug use or alcohol. PHYSICAL EXAMINATION: VITAL SIGNS: In triage, her vital signs are stable and she is afebrile. GENERAL: She is pleasant and in no acute distress. ABDOMEN: Soft, nontender, and gravid. PELVIC: Pelvic exam shows the cervix to be closed and posterior. heart rate tracing is stable with no decelerations. Spontaneous accelerations were seen. No uterine contractions were noted. Sonogram shows a single cephalic fetus with biometry consistent with 34-5/7 weeks. Biometry appears consistent. Estimated weight is 2327 g. ZENA 12.4, cervical length 3.5. ASSESSMENT: 1. 34-week intrauterine by ultrasound today, minimal care. 2. No evidence of vaginal bleeding or labor at this time. 3. Previous section, documented low segment transverse by records here at [place]. 4. Smoker. PLAN: The patient will be discharged to home. She was given precautions. The patient was strongly cautioned regarding her smoking, particularly in view of her previous history of IUGR. The patient voices understanding of her discharge instructions and as above, states she has an appointment with Dr. Abdi in two days. Job ID: [id number]
[2020-07-10] MEDS ORDERED: FLU VACC QS2020-21(6MOS UP)/PF 60 MCG/0.5 ML SYRINGE IM ONE (09:00)
== END 2020-07-09 13:25 | disposition home or self-care (01) ==
LOC: L&D/OP 10:45
PROVIDERS: ATTEND Obstetrics & Gynecology
DX: O26.853 Spotting complicating pregnancy, third trimester (principal); O99.333 Smoking (tobacco) complicating pregnancy, third trimester; F17.200 Nicotine dependence, unspecified, uncomplicated; O34.211 Maternal care for low transverse scar from previous cesarean delivery; Z3A.34 34 weeks gestation of pregnancy
CPT/HCPCS: 76815; 99282

== ENCOUNTER 2020-07-11 12:27 | Inpatient (IN) | payer OTHER ==
[2020-07-11 13:04] VITALS: BMI 28.0
[2020-07-11 13:39] LABS: Amphetamine Not Detected (NotDetected); Barbiturates Screen Not Detected (NotDetected); Benzodiazepine Screen Not Detected (NotDetected); Cocaine Metabolite Screen Not Detected (NotDetected); Medtox Control Line Valid? VALID (VALID); Medtox Reader # READER 1; Methadone Not Detected (NotDetected); Methamphetamine Not Detected (NotDetected); Opiate Screen Not Detected (NotDetected); Oxycodone Screen Not Detected (NotDetected); Phencyclidine (PCP) Not Detected (NotDetected); THC/Cannabinoid Screen Not Detected (NotDetected); Tricyclic Screen Not Detected (NotDetected)
[2020-07-11 13:42] LABS: Amnisure Internal Control QC ACCEPTABLE (ACCEPTABLE); Amnisure Test RUPTURE DETECTED (No Rupture)
[2020-07-11] MEDS ORDERED: Betamet Acet/Betamet Na Ph 30 MG/5 ML VIAL ONE (13:49)
[2020-07-11] MEDS ORDERED: Butorphanol Tartrate 1 MG/ML VIAL SLOW IVP PRN (13:52)
[2020-07-11] MEDS ORDERED: Methylergonovine 0.2 MG/ML VIAL IM PRN ×2 (13:52→23:16)
[2020-07-11] MEDS ORDERED: Carboprost 250 MCG/ML AMP IM PRN (13:52)
[2020-07-11] MEDS ORDERED: Ibuprofen 800 MG TAB PO PRN (13:52)
[2020-07-11] MEDS ORDERED: Ondansetron PF 4 MG/2 ML Vial IVP PRN ×3 (13:52→23:16)
[2020-07-11] MEDS ORDERED: Docusate 100 MG CAP PO PRN (13:52)
[2020-07-11] MEDS ORDERED: NS / Oxytocin 40 units/1000ml 1,000 ML IV PRN (13:52)
[2020-07-11] MEDS ORDERED: Lidocaine 1% (PF) 30 ML VIAL SC PRN (13:52)
[2020-07-11] MEDS ORDERED: Promethazine HCl 25 MG/ML VIAL IM PRN ×3 (13:52→23:16)
[2020-07-11] MEDS ORDERED: hydrALAZINE 20 MG/ML VIAL SLOW IVP PRN ×2 (13:52→23:16)
[2020-07-11] MEDS ORDERED: Diphenoxylate HCl/Atropine Tablet PO PRN ×2 (13:52)
[2020-07-11] MEDS ORDERED: Acetaminophen 500 MG TAB PO PRN (13:52)
[2020-07-11] MEDS ORDERED: HYDROcodone/Acetaminophen 5/325 mg Tablet PO PRN ×4 (13:52→23:16)
[2020-07-11] MEDS ORDERED: Misoprostol 200 MCG TAB PR PRN (13:52)
--- NOTE | 2020-07-11 13:58 | PDOC.LDHP ---
Labor and Delivery H&P Chief complaint: loss of fluid HPI: 25 y/o female, with no care, and estimated EGA of 34 weeks and 0 days, presents from clinic reporting a full day of loosing amniotic fluid yesterday, but with no medical help sought. Pt with positive amniosure, grossly ruptured, 3cm/50%/-2 cervix. Patient has requested a TOLAC. Current gestational age (weeks): 34 Due date: 08/22/20 Grav: 4 Para: 3 Abnormal US findings: Yes (no ) Current medications: pre-ambrosio vitamins Previous surgical history: low tranverse CS Allergies/Adverse Reactions: Allergies Allergy/AdvReac Type Severity Reaction Status Date / Time No Known Allergies Allergy Verified 01/23/20 20:38 Social history: tobacco use - Physical Exam Vital signs reviewed and normal: yes General: NAD Heart: RRR Lungs: CTAB Abdomen: gravid Extremeties: no edema FHT: category 1 - Assessment L&D Assessment: premature rupture of membranes - Plan Plan: admit to L&D, labor augmentation if indicated
[2020-07-11] MEDS ORDERED: Betamet Acet/Betamet Na Ph 30 MG/5 ML VIAL IM SCH (14:00)
[2020-07-11] MEDS ORDERED: Penicillin G Potassium 5 MILL.UNITS in Sodium Chloride 0.9% 100 ML IVPB SCH (14:00)
[2020-07-11] MEDS ORDERED: Lactated Ringer's 1,000 ML IV SCH (14:00)
[2020-07-11] MEDS ORDERED: NS w/ Oxytocin 10 units 500 ML IV SCH ×2 (14:00)
[2020-07-11] MEDS ORDERED: Penicillin G Potassium 5 MILL.UNITS VIAL ONE (14:04)
[2020-07-11 14:53] LABS: Hemoglobin 11.5 g/dL (12.0-16.0); Mean Corpuscular Hemoglobin 29.1 pg (27.0-31.0); Mean Corpuscular Volume 85.5 fL (78.0-98.0); Mean Platelet Volume 7.2 fL (7.4-10.4); Platelet Count 258 thou/uL (130-400); RBC Distribution Width 13.2 % (11.5-14.5); Red Blood Cell (RBC) Count 3.97 mill/uL (4.20-5.40); White Blood Cell (WBC) Count 11.5 thou/uL (4.8-10.8)
[2020-07-11 15:38] LABS: HBSAg Index 0.13 S/CO (0-0.99); Hep B Surf Ag Non-Reactive S/CO (NonReactive)
[2020-07-11] MEDS ORDERED: Fentanyl 4 mcg/Bup 0.1% Cadd 100 ML ONE (16:20)
[2020-07-11 17:24] LABS: Syphilis Antibody Nonreactive (Nonreactive); Syphilis Antibody Index 0.02 S/CO (<1.00 Non-Reactive)
[2020-07-11] MEDS ORDERED: Penicillin G 2.5 MILL.units 2.5 MILL.UNITS in Premix Bag 1 BAG IVPB SCH (18:00)
[2020-07-11] MEDS ORDERED: diphenhydrAMINE 50 MG/ML VIAL IVP PRN (18:02)
[2020-07-11] MEDS ORDERED: EPHEDRINE 25 MG/5 ML SYRINGE SLOW IVP PRN (18:02)
[2020-07-11] MEDS ORDERED: Acetaminophen 325 MG TAB PO PRN (18:02)
[2020-07-11] MEDS ORDERED: Naloxone HCl 0.4 mg/ml Vial IVP PRN ×2 (18:02)
[2020-07-11] MEDS ORDERED: Lactated Ringer's 500 ML IV PRN (18:02)
[2020-07-11] MEDS ORDERED: Fentanyl 4 mcg/Bupivacaine 0.1% Cassette 100 ML EPIDURAL SCH (18:15)
[2020-07-11] MEDS ORDERED: Communication Order-Pharmacy FS SCH (18:15)
[2020-07-11 19:38] LABS: SARS-CoV-2 NAA Rapid Test DETECTED (NotDetected)
[2020-07-11] MEDS ORDERED: Milk Of Magnesia 30 ML UDCUP PO PRN (23:16)
[2020-07-11] MEDS ORDERED: Lanolin Ointment 7 GM TUBE TOP PRN (23:16)
[2020-07-11] MEDS ORDERED: Bisacodyl 10 MG SUPP PR PRN (23:16)
[2020-07-11] MEDS ORDERED: Misoprostol 200 MCG TAB VAG PRN (23:16)
[2020-07-11] MEDS ORDERED: Zolpidem Tartrate 5 MG TAB PO PRN (23:16)
[2020-07-11] MEDS ORDERED: diphenhydrAMINE 25 MG CAP PO PRN (23:16)
[2020-07-11] MEDS ORDERED: NS / Oxytocin 40 units/1000ml 1,000 ML IV SCH (23:16)
[2020-07-11] MEDS ORDERED: Preparation H Ointment 28 GM TUBE PR PRN (23:16)
[2020-07-11] MEDS ORDERED: Benzocaine-Menthol 82.5 ML CAN TOP PRN (23:16)
[2020-07-11] MEDS ORDERED: Docusate Calcium (SURFAK) 240 MG CAP PO SCH (23:30)
[2020-07-12 01:06] LABS: HIV (1/2) Antibody/Antigen Non-Reactive (NonReactive); HIV 1/2 INDEX 0.12 S/CO (<1.00)
[2020-07-12] MEDS: Ibuprofen 800 MG TAB PO SCH ×2 (05:22→08:11)
[2020-07-12 07:49] LABS: Hemoglobin 10.8 g/dL (12.0-16.0); Mean Corpuscular HGB CONC 33.6 g/dL (32.0-36.0); Mean Corpuscular Hemoglobin 29.3 pg (27.0-31.0); Mean Corpuscular Volume 87.1 fL (78.0-98.0); Mean Platelet Volume 7.3 fL (7.4-10.4); Platelet Count 263 thou/uL (130-400); RBC Distribution Width 13.1 % (11.5-14.5); Red Blood Cell (RBC) Count 3.69 mill/uL (4.20-5.40); White Blood Cell (WBC) Count 19.9 thou/uL (4.8-10.8)
[2020-07-12] MEDS ORDERED: Ferrous Sulfate 325 MG TAB PO SCH (08:00)
[2020-07-12] MEDS ORDERED: Adacel (T-DAP) 0.5 ML SYRINGE IM ONE (09:00)
[2020-07-12] MEDS ORDERED: Prenatal Vitamin 1 TAB PO SCH (09:00)
[2020-07-12] MEDS ORDERED: FLU VACC QS2020-21(6MOS UP)/PF 60 MCG/0.5 ML SYRINGE IM ONE (09:00)
[2020-07-12] MEDS ORDERED: Docusate Calcium (SURFAK) 240 MG CAP PO SCH (09:00)
== END 2020-07-12 19:45 | disposition home or self-care (01) | DRG 805 ==
LOC: L&D/OP 12:27 → L&D 16:45
PROVIDERS: ADMIT Obstetrics & Gynecology; ATTEND Obstetrics & Gynecology
PROC: 10E0XZZ Delivery of Products of Conception, External Approach (ICD-10-PCS; principal; 2020-07-11)
PROC: 3E033VJ Introduction of Other Hormone into Peripheral Vein, Percutaneous Approach (ICD-10-PCS; 2020-07-11)
DX: O42.013 Preterm premature rupture of membranes, onset of labor within 24 hours of rupture, third trimester (principal); U07.1 COVID-19; Z37.0 Single live birth; O98.52 Other viral diseases complicating childbirth; Z3A.34 34 weeks gestation of pregnancy; O99.334 Smoking (tobacco) complicating childbirth; F17.210 Nicotine dependence, cigarettes, uncomplicated; O69.81X0 Labor and delivery complicated by cord around neck, without compression, not applicable or unspecified
CPT/HCPCS: 36415; 51702; 80306; 84112; 85027; 86762; 86780; 86850; 86900; 86901; 87340; 87389; 88307; 99285; J0702; J2405; J2540; J2590; U0002

== ENCOUNTER 2021-07-17 12:04 | Inpatient (IN) | payer OTHER, SELFPAY ==
[2021-07-17] MEDS ORDERED: Vancomycin 1 GM/200 ML BAG ONE (12:36)
[2021-07-17 12:51] LABS: #Eosinphils 0.1 thou/uL (0.0-0.7); #Lymphocytes 1.6 thou/uL (1.20-3.40); #Monocytes 0.5 thou/uL (0.11-0.59); #Neutrophils 7.4 thou/uL (1.40-6.50); %Basophils 0.3 % (0.0-1.0); %Eosinophils 0.9 % (0.0-10.0); %Lymphocytes 16.3 % (21.0-51.0); %Monocytes 4.9 % (0.0-10.0); %Neutrophils 77.6 % (42.0-75.0); Hemoglobin 13.2 g/dL (12.0-16.0); Mean Corpuscular HGB CONC 32.5 g/dL (32.0-36.0); Mean Corpuscular Hemoglobin 28.6 pg (27.0-31.0); Platelet Count 389 thou/uL (130-400); RBC Distribution Width 12.4 % (11.5-14.5); Red Blood Cell (RBC) Count 4.61 mill/uL (4.20-5.40); White Blood Cell (WBC) Count 9.6 thou/uL (4.8-10.8)
[2021-07-17 13:07] LABS: ALT (SGPT) 16 U/L (8-55); AST (SGOT) 23 U/L (5-34); Albumin 4.3 g/dL (3.5-5.0); Alkaline Phosphatase 98 U/L (40-110); Anion Gap 11 mmol/L (10-20); BUN (Urea Nitrogen) 13 mg/dL (7.0-18.7); Bilirubin, Total 1.1 mg/dL (0.2-1.2); Calc. Creatinine Clearance 0 mL/min (70-130); Calcium 9.7 mg/dL (7.8-10.44); Carbon Dioxide 29 mmol/L (22-29); Chloride 102 mmol/L (98-107); Globulin 3.3 g/dL (2.4-3.5); Glucose 125 mg/dL (70-105); Potassium 3.5 mmol/L (3.5-5.1); Protein, Total 7.6 g/dL (6.0-8.3); Sodium 138 mmol/L (136-145)
[2021-07-17] MEDS ORDERED: Fentanyl 100 MCG/2 ML VIAL ONE ×3 (13:39→18:11)
[2021-07-17] MEDS ORDERED: Ondansetron PF 4 MG/2 ML Vial ONE (15:00)
[2021-07-17] MEDS ORDERED: Ampicillin/Sulbactam 3 GM in Sodium Chloride 0.9% 100 ML IVPB SCH (15:15)
[2021-07-17 16:04] LABS: SARS-CoV-2 NAA Rapid Test Not Detected (NotDetected)
[2021-07-17] MEDS ORDERED: Bupivacaine 0.25% HCL 30 ML VIAL ONE (17:08)
[2021-07-17] MEDS ORDERED: Lidocaine 1% w/Epinephrine 1:100K 20 ML VIAL ONE (17:15)
[2021-07-17] MEDS ORDERED: Midazolam HCl 2 mg/2 ml Vial ONE ×2 (17:25→18:14)
[2021-07-17] MEDS ORDERED: PROPOFOL 200 MG/20 ML VIAL ONE (17:28)
[2021-07-17] MEDS ORDERED: Piperacillin/Tazobactam 3.375 GM in Sodium Chloride 0.9% 100 ML IVPB SCH ×2 (18:00→18:30)
[2021-07-17] MEDS ORDERED: Ondansetron HCl/PF 4 MG/2 ML Vial IVP PRN (18:19)
[2021-07-17] MEDS ORDERED: Promethazine HCl 25 MG/ML VIAL IVPB PRN (18:19)
[2021-07-17] MEDS ORDERED: Meperidine HCl/PF 25 MG/ML VIAL SLOW IVP PRN (18:19)
[2021-07-17] MEDS ORDERED: Promethazine HCl 25 MG/ML VIAL IM PRN (18:19)
[2021-07-17] MEDS ORDERED: Midazolam HCl 2 mg/2 ml Vial SLOW IVP SCH (18:30)
[2021-07-17] MEDS ORDERED: Acetaminophen 325 MG TAB PO PRN (19:47)
[2021-07-17 19:58] VITALS: BMI 20.5
[2021-07-17] MEDS ORDERED: Vancomycin 1 GM in Premix Bag 1 BAG IVPB SCH (21:00)
[2021-07-17] MEDS: Piperacillin/Tazobactam 3.375 GM in Sodium Chloride 0.9% 100 ML IVPB SCH (23:00)
[2021-07-17] MEDS: HYDROcodone/Acetaminophen 5/325 mg Tablet PO PRN (23:12)
[2021-07-18 00:15] LABS: Amphetamine Detected (NotDetected); Barbiturates Screen Not Detected (NotDetected); Benzodiazepine Screen Not Detected (NotDetected); Cocaine Metabolite Screen Not Detected (NotDetected); Methadone Not Detected (NotDetected); Methamphetamine Detected (NotDetected); Opiate Screen Not Detected (NotDetected); Oxycodone Screen Not Detected (NotDetected); Phencyclidine (PCP) Not Detected (NotDetected); THC/Cannabinoid Screen Not Detected (NotDetected); Tricyclic Screen Not Detected (NotDetected)
[2021-07-18] MEDS ORDERED: HYDROcodone/Acetaminophen 10/325 mg Tablet PO SCH (01:30)
[2021-07-18] MEDS: HYDROcodone/Acetaminophen 5/325 mg Tablet PO PRN ×4 (05:10→20:26)
[2021-07-18] MEDS: Piperacillin/Tazobactam 3.375 GM in Sodium Chloride 0.9% 100 ML IVPB SCH ×3 (05:10→22:18)
[2021-07-18 06:04] LABS: #Basophils 0.1 thou/uL (0.0-0.2); #Eosinphils 0.1 thou/uL (0.0-0.7); #Lymphocytes 2.5 thou/uL (1.20-3.40); #Monocytes 0.5 thou/uL (0.11-0.59); #Neutrophils 3.4 thou/uL (1.40-6.50); %Basophils 0.8 % (0.0-1.0); %Eosinophils 2.1 % (0.0-10.0); %Lymphocytes 37.7 % (21.0-51.0); %Monocytes 6.8 % (0.0-10.0); %Neutrophils 52.6 % (42.0-75.0); Mean Corpuscular Hemoglobin 28.6 pg (27.0-31.0); Mean Corpuscular Volume 89.4 fL (78.0-98.0); Mean Platelet Volume 6.1 fL (7.4-10.4); Platelet Count 310 thou/uL (130-400); RBC Distribution Width 12.3 % (11.5-14.5); Red Blood Cell (RBC) Count 3.86 mill/uL (4.20-5.40); White Blood Cell (WBC) Count 6.5 thou/uL (4.8-10.8)
[2021-07-18 06:21] LABS: Anion Gap 10 mmol/L (10-20); BUN (Urea Nitrogen) 9 mg/dL (7.0-18.7); Calc. Creatinine Clearance 104 mL/min (70-130); Calcium 8.3 mg/dL (7.8-10.44); Carbon Dioxide 25 mmol/L (22-29); Chloride 106 mmol/L (98-107); Glucose 124 mg/dL (70-105); Potassium 3.5 mmol/L (3.5-5.1); Sodium 137 mmol/L (136-145)
[2021-07-18] MEDS ORDERED: Potassium Chloride 20 MEQ TAB PO SCH (08:30)
[2021-07-18] MEDS: Enoxaparin Sodium 40 MG/0.4 ML SYRINGE SC SCH (08:52)
[2021-07-18] MEDS: Sodium Chloride 0.9% 1,000 ML IV SCH (09:07)
[2021-07-18] MEDS ORDERED: HYDROcodone/Acetaminophen 5/325 mg Tablet PO PRN (15:33)
[2021-07-18] MEDS ORDERED: HYDROcodone/Acetaminophen 5/325 mg Tablet PO SCH (15:45)
[2021-07-18] MEDS: Vancomycin 1 GM in Premix Bag 1 BAG IVPB SCH (17:51)
[2021-07-19 01:34] LABS: Vancomycin, Trough 13.4 ug/mL
[2021-07-19] MEDS: Vancomycin 1 GM in Premix Bag 1 BAG IVPB SCH ×3 (01:49→18:06)
[2021-07-19] MEDS: Piperacillin/Tazobactam 3.375 GM in Sodium Chloride 0.9% 100 ML IVPB SCH ×3 (06:31→21:07)
[2021-07-19] MEDS: Sodium Chloride 0.9% 1,000 ML IV SCH (06:31)
[2021-07-19] MEDS: Enoxaparin Sodium 40 MG/0.4 ML SYRINGE SC SCH (08:23)
[2021-07-19] MEDS: HYDROcodone/Acetaminophen 5/325 mg Tablet PO PRN ×2 (08:28→18:06)
[2021-07-19] MEDS: Morphine 4 MG/ML VIAL SLOW IVP PRN (12:58)
[2021-07-19] MEDS: Ondansetron PF 4 MG/2 ML Vial IVP PRN (15:02)
[2021-07-20] MEDS: Vancomycin HCl 750 MG in Sodium Chloride 0.9% 250 ML 250 ML IVPB SCH ×3 (01:36→18:38)
[2021-07-20] MEDS: Vancomycin 1 GM in Premix Bag 1 BAG IVPB SCH (01:40)
[2021-07-20] MEDS: Sodium Chloride 0.9% 1,000 ML IV SCH (05:11)
[2021-07-20] MEDS: Piperacillin/Tazobactam 3.375 GM in Sodium Chloride 0.9% 100 ML IVPB SCH ×3 (05:11→22:00)
[2021-07-20] MEDS: Enoxaparin Sodium 40 MG/0.4 ML SYRINGE SC SCH (09:26)
[2021-07-20] MEDS: HYDROcodone/Acetaminophen 5/325 mg Tablet PO PRN ×2 (09:26→18:38)
[2021-07-20] MEDS: Morphine 4 MG/ML VIAL SLOW IVP PRN (10:15)
[2021-07-21 01:48] LABS: Vancomycin, Trough 18.7 ug/mL
[2021-07-21] MEDS: Vancomycin HCl 750 MG in Sodium Chloride 0.9% 250 ML 250 ML IVPB SCH ×3 (02:53→18:31)
[2021-07-21] MEDS: Sodium Chloride 0.9% 1,000 ML IV SCH ×2 (02:56→16:04)
[2021-07-21] MEDS: Piperacillin/Tazobactam 3.375 GM in Sodium Chloride 0.9% 100 ML IVPB SCH ×2 (05:10→13:45)
[2021-07-21] MEDS: Enoxaparin Sodium 40 MG/0.4 ML SYRINGE SC SCH (09:18)
[2021-07-21] MEDS: HYDROcodone/Acetaminophen 5/325 mg Tablet PO PRN (10:11)
[2021-07-21] MEDS: Morphine 4 MG/ML VIAL SLOW IVP PRN (11:35)
[2021-07-21] MEDS: Ondansetron PF 4 MG/2 ML Vial IVP PRN (11:37)
[2021-07-21 16:06] VITALS: BP 97/61; TEMP 98.2
[2021-07-23 14:14] LABS: Fungus Stain Final report (.)
== END 2021-07-21 18:20 | disposition home or self-care (01) | DRG 854 ==
LOC: ERS 12:04 → SDC/OP 16:31 → SURG A 19:08
PROVIDERS: ADMIT Internal Medicine; ATTEND Family Medicine
PROC: 0K990ZZ Drainage of Right Lower Arm and Wrist Muscle, Open Approach (ICD-10-PCS; principal; 2021-07-18)
PROC: 0H9FXZZ Drainage of Right Hand Skin, External Approach (ICD-10-PCS; 2021-07-18)
DX: A41.9 Sepsis, unspecified organism (principal); M00.9 Pyogenic arthritis, unspecified; L03.113 Cellulitis of right upper limb; L02.511 Cutaneous abscess of right hand; Z20.822 Contact with and (suspected) exposure to COVID-19; F15.10 Other stimulant abuse, uncomplicated; E87.6 Hypokalemia
CPT/HCPCS: 36415; 80048; 80053; 80202; 80306; 83605; 85025; 86140; 87040; 87070; 87077; 87102; 87116; 87205; 87206; J0295; J1650; J2250; J2270; J2405; J2543; J2704; J3010; J3370; J3490; J7050; S0020; U0002

== ENCOUNTER 2023-08-01 03:24 | Inpatient (IN) | payer OTHER ==
[2023-08-01] MEDS ORDERED: levETIRAcetam 500 MG TAB ONE (04:04)
[2023-08-01 04:06] LABS: #Basophils 0.1 thou/uL (0.0-0.2); #Eosinphils 0.3 thou/uL (0.0-0.7); #Monocytes 0.3 thou/uL (0.11-0.59); #Neutrophils 2.4 thou/uL (1.40-6.50); %Basophils 0.9 % (0.0-1.0); %Lymphocytes 45.2 % (21.0-51.0); %Monocytes 5.7 % (0.0-10.0); Hematocrit 30.9 % (36.0-47.0); Hemoglobin 9.7 g/dL (12.0-16.0); Mean Corpuscular HGB CONC 31.4 g/dL (32.0-36.0); Mean Corpuscular Hemoglobin 26.6 pg (27.0-31.0); Mean Corpuscular Volume 84.9 fl (78.0-98.0); Mean Platelet Volume 8.6 fL (7.4-10.4); Platelet Count 349 10x3/uL (130-400); RBC Distribution Width 15.9 % (11.5-14.5); Red Blood Cell (RBC) Count 3.64 mill/uL (4.20-5.40); White Blood Cell (WBC) Count 5.6 10x3/uL (4.8-10.8)
[2023-08-01] MEDS ORDERED: Boostrix 0.5 ML (Tdap) VIAL (>/=7 yrs of age) ONE (04:13)
[2023-08-01 04:20] LABS: BHCG - Serum Negative (NEGATIVE); Pregs Control Background? CLEAR/WHITE (CLR/WHITE); Pregs Control Bar Appear? YES (CONTROL BAR)
[2023-08-01 04:29] LABS: Acetaminophen Less than 10 mcg/mL (10.0-30.0); Alcohol Less than 10.0 mg/dL (Less than 10); Salicylate Less than 8.0 mg/dL (15.0-30.0)
[2023-08-01 04:33] LABS: Troponin I Less than 0.010 ng/mL (< 0.028)
[2023-08-01 04:38] LABS: ALT (SGPT) 21 U/L (8-55); AST (SGOT) 22 U/L (5-34); Albumin 3.5 g/dL (3.5-5.0); Alkaline Phosphatase 55 U/L (40-110); Anion Gap 10 mmol/L (10-20); BUN (Urea Nitrogen) 12 mg/dL (7.0-18.7); Bilirubin, Total 0.3 mg/dL (0.2-1.2); Calc. Creatinine Clearance 0 mL/min (70-130); Calcium 8.4 mg/dL (7.8-10.44); Carbon Dioxide 23 mmol/L (22-29); Chloride 111 mmol/L (98-107); Estimated GFR 113; Globulin 2.3 g/dL (2.4-3.5); Glucose 90 mg/dL (70-105); Potassium 3.4 mmol/L (3.5-5.1); Protein, Total 5.8 g/dL (6.0-8.3); Sodium 141 mmol/L (136-145)
[2023-08-01] MEDS ORDERED: Rabies Vaccine Human 2.5 UNITS VIAL ONE (06:24)
[2023-08-01] MEDS ORDERED: Rabies Immune Globulin/PF 300 UNITS/ML VIAL ONE (06:25)
[2023-08-01] MEDS ORDERED: Furosemide 40 MG/4 ML VIAL ONE (06:34)
[2023-08-01] MEDS ORDERED: Potassium Chloride 20 MEQ TAB ONE (09:41)
[2023-08-01] MEDS ORDERED: Piperacillin/Tazobactam 3.375 GM VIAL ONE (09:42)
[2023-08-01] MEDS ORDERED: Sodium Chloride 0.9% 100 ML ONE (09:42)
[2023-08-01] MEDS ORDERED: Piperacillin/Tazobactam 3.375 GM in Sodium Chloride 0.9% 100 ML IVPB SCH ×2 (10:00→12:00)
[2023-08-01] MEDS: Sodium Chloride 0.9% 1,000 ML IV SCH ×2 (10:16→21:07)
[2023-08-01 10:35] LABS: Amphetamine Not Detected (NotDetected); Barbiturates Screen Not Detected (NotDetected); Benzodiazepine Screen Detected (NotDetected); Cocaine Metabolite Screen Not Detected (NotDetected); Methadone Not Detected (NotDetected); Methamphetamine Not Detected (NotDetected); Opiate Screen Not Detected (NotDetected); Oxycodone Screen Not Detected (NotDetected); Phencyclidine (PCP) Not Detected (NotDetected); THC/Cannabinoid Screen Not Detected (NotDetected); Tricyclic Screen Not Detected (NotDetected)
[2023-08-01] MEDS: Piperacillin/Tazobactam 3.375 GM in Sodium Chloride 0.9% 100 ML IVPB SCH ×2 (14:05→21:07)
[2023-08-01 15:00] VITALS: BMI 22.3
[2023-08-01] MEDS: levETIRAcetam 500 MG TAB PO SCH (20:37)
[2023-08-02] MEDS: Acetaminophen 325 MG TAB PO PRN ×3 (04:14→21:26)
[2023-08-02 04:23] LABS: Hematocrit 35.1 % (36.0-47.0); Mean Corpuscular HGB CONC 31.3 g/dL (32.0-36.0); Mean Corpuscular Hemoglobin 26.5 pg (27.0-31.0); Mean Corpuscular Volume 84.6 fl (78.0-98.0); Mean Platelet Volume 8.5 fL (7.4-10.4); Platelet Count 333 10x3/uL (130-400); Red Blood Cell (RBC) Count 4.15 mill/uL (4.20-5.40)
[2023-08-02 04:24] LABS: Delete Auto Diff?? YES; Manual Diff?? YES
[2023-08-02 04:56] LABS: Band 6 % (5-11); CellaVision Operator ID LAB.CLH1; Eosinophils 5 % (0-10); Hypochromia SLIGHT = 6-15 cells HPF (0-5); Lymphocytes 28 % (21-51); Monocytes 5 % (0-10); Neutrophil 55 % (42-75); Platelet Adequacy Comment Platelets Normal; Polychromasia SLIGHT = 2-3 cells HPF (0-2); Smudge Cells 13.1 %; Total Cell Count 99
[2023-08-02] MEDS: Piperacillin/Tazobactam 3.375 GM in Sodium Chloride 0.9% 100 ML IVPB SCH ×2 (05:02→15:07)
[2023-08-02] MEDS: levETIRAcetam 500 MG TAB PO SCH ×2 (09:27→21:25)
[2023-08-02] MEDS: Melatonin 3 MG TAB PO PRN (22:26)
[2023-08-03] MEDS: Piperacillin/Tazobactam 3.375 GM in Sodium Chloride 0.9% 100 ML IVPB SCH ×3 (01:35→18:46)
[2023-08-03] MEDS: levETIRAcetam 500 MG TAB PO SCH ×2 (10:18→20:53)
[2023-08-03] MEDS ORDERED: VANCOMYCIN IVPB PRN (11:13)
[2023-08-03] MEDS ORDERED: Vancomycin HCl 750 MG in Sodium Chloride 0.9% 250 ML 250 ML IVPB SCH ×2 (12:00→20:00)
[2023-08-03] MEDS ORDERED: Vancomycin (BATCH) 1.5 GM in Premix 1 BAG IVPB SCH (12:00)
[2023-08-03] MEDS ORDERED: Ondansetron PF 4 MG/2 ML Vial IVP PRN (12:26)
[2023-08-03] MEDS ORDERED: Aluminum & Magnesium Hydroxide 60 ML, diphenhydrAMINE 150 MG, Lidocaine 2% Viscous Solu... SSW PRN (12:26)
[2023-08-03] MEDS: Acetaminophen 325 MG TAB PO PRN (20:52)
[2023-08-04] MEDS: Piperacillin/Tazobactam 3.375 GM in Sodium Chloride 0.9% 100 ML IVPB SCH ×2 (02:12→09:53)
[2023-08-04] MEDS ORDERED: DIPHENHYDRAMINE SSW SCH (03:00)
[2023-08-04] MEDS ORDERED: [UNRECOGNIZED DRUG - OTHER] SSW SCH (03:00)
[2023-08-04] MEDS ORDERED: MAGNESIUM HYDROXIDE SSW SCH (03:00)
[2023-08-04] MEDS ORDERED: ALUMINUM SSW SCH (03:00)
[2023-08-04] MEDS: Melatonin 3 MG TAB PO PRN (03:07)
[2023-08-04 04:29] VITALS: TEMP 97.9
[2023-08-04 05:00] LABS: Hemoglobin 11.9 g/dL (12.0-16.0); Mean Corpuscular HGB CONC 31.3 g/dL (32.0-36.0); Mean Corpuscular Hemoglobin 26.7 pg (27.0-31.0); Mean Corpuscular Volume 85.2 fl (78.0-98.0); Mean Platelet Volume 8.7 fL (7.4-10.4); Platelet Count 343 10x3/uL (130-400); RBC Distribution Width 15.7 % (11.5-14.5); Red Blood Cell (RBC) Count 4.46 mill/uL (4.20-5.40); White Blood Cell (WBC) Count 9.8 10x3/uL (4.8-10.8)
[2023-08-04 05:22] LABS: Anion Gap 13 mmol/L (10-20); BUN (Urea Nitrogen) 21 mg/dL (7.0-18.7); Calc. Creatinine Clearance 101 mL/min (70-130); Calcium 9.4 mg/dL (7.8-10.44); Carbon Dioxide 25 mmol/L (22-29); Chloride 104 mmol/L (98-107); Estimated GFR 106; Glucose 93 mg/dL (70-105); Sodium 138 mmol/L (136-145)
[2023-08-04] MEDS ORDERED: Lidocaine 1% PF 5 ML VIAL ONE (07:41)
[2023-08-04] MEDS ORDERED: ePHEDrine Sulfate 50 MG/10 ML VIAL ONE (07:42)
[2023-08-04] MEDS ORDERED: PROPOFOL 40 ML ONE (07:42)
[2023-08-04] MEDS ORDERED: Midazolam HCl 2 mg/2 ml Vial ONE ×2 (07:44→08:44)
[2023-08-04] MEDS ORDERED: fentaNYL 50 mcg/mL 1 mL Vial ONE (07:44)
[2023-08-04] MEDS: levETIRAcetam 500 MG TAB PO SCH (07:51)
[2023-08-04] MEDS ORDERED: Vancomycin HCl 750 MG in Sodium Chloride 0.9% 250 ML 250 ML IVPB SCH ×2 (08:00→14:30)
[2023-08-04] MEDS ORDERED: Lorazepam 2 MG/ML VIAL ONE (08:43)
[2023-08-04] MEDS ORDERED: levETIRAcetam 500 MG/5 ML VIAL SLOW IVP SCH (09:30)
[2023-08-04] MEDS ORDERED: Nicotine 14 MG PATCH TD SCH (14:00)
[2023-08-04 15:58] VITALS: BP 98/65
== END 2023-08-04 14:10 | disposition left against medical advice (07) | DRG 100 ==
LOC: SUATTDRO 03:24 → ERS 03:24 → EEVIPCON 07:18 → ERHOLD 07:18 → 2SE 14:26 → OBSVTOIN 08-02 15:09
PROVIDERS: ADMIT Internal Medicine; ATTEND Internal Medicine
PROC: 4A00X4Z Measurement of Central Nervous Electrical Activity, External Approach (ICD-10-PCS; principal; 2023-08-01)
PROC: B244ZZ4 Ultrasonography of Right Heart, Transesophageal (ICD-10-PCS; 2023-08-02)
PROC: 4A00X4Z Measurement of Central Nervous Electrical Activity, External Approach (ICD-10-PCS; 2023-08-04)
DX: G40.909 Epilepsy, unspecified, not intractable, without status epilepticus (principal); J18.9 Pneumonia, unspecified organism; L02.415 Cutaneous abscess of right lower limb; S81.851A Open bite, right lower leg, initial encounter; F19.10 Other psychoactive substance abuse, uncomplicated; I07.1 Rheumatic tricuspid insufficiency; I27.20 Pulmonary hypertension, unspecified; I50.9 Heart failure, unspecified; W54.0XXA Bitten by dog, initial encounter; Z79.2 Long term (current) use of antibiotics; E87.6 Hypokalemia
CPT/HCPCS: 36415; 70450; 70551; 71045; 71046; 80048; 80053; 80306; 80307; 83605; 83880; 84146; 84484; 84703; 85025; 85027; 87040; 87149; 90375; 90471; 90472; 90675; 90715; 93005; 93306; 93312; 95711; 95819; 96372; 96374; 96375; 96376; G0378; J1650; J1940; J2060; J2250; J2405; J2543; J2704; J3010; J3370; J3490; J7050; Q0163

== ENCOUNTER 2023-08-04 15:25 | Emergency (ER) | payer OTHER, SELFPAY ==
[2023-08-04] MEDS ORDERED: Nicotine 21 MG PATCH TOP SCH ×2 (16:30→21:00)
[2023-08-04 16:46] LABS: #Basophils 0.1 thou/uL (0.0-0.2); #Eosinphils 0.6 thou/uL (0.0-0.7); #Monocytes 0.6 thou/uL (0.11-0.59); #Neutrophils 7.4 thou/uL (1.40-6.50); %Basophils 0.7 % (0.0-1.0); %Eosinophils 4.9 % (0.0-10.0); %Monocytes 4.9 % (0.0-10.0); %Neutrophils 65.1 % (42.0-75.0); Hematocrit 41.3 % (36.0-47.0); Hemoglobin 13.1 g/dL (12.0-16.0); Mean Corpuscular HGB CONC 31.7 g/dL (32.0-36.0); Mean Corpuscular Hemoglobin 26.8 pg (27.0-31.0); Mean Corpuscular Volume 84.5 fl (78.0-98.0); Mean Platelet Volume 8.4 fL (7.4-10.4); Platelet Count 388 10x3/uL (130-400); RBC Distribution Width 15.9 % (11.5-14.5); Red Blood Cell (RBC) Count 4.89 mill/uL (4.20-5.40); White Blood Cell (WBC) Count 11.3 10x3/uL (4.8-10.8)
[2023-08-04 16:53] LABS: BHCG - Serum Negative (NEGATIVE); Pregs Control Background? CLEAR/WHITE (CLR/WHITE); Pregs Control Bar Appear? YES (CONTROL BAR)
[2023-08-04 17:11] LABS: ALT (SGPT) 43 U/L (8-55); AST (SGOT) 36 U/L (5-34); Albumin 4.4 g/dL (3.5-5.0); Alkaline Phosphatase 84 U/L (40-110); Anion Gap 14 mmol/L (10-20); BUN (Urea Nitrogen) 17 mg/dL (7.0-18.7); Bilirubin, Total 0.4 mg/dL (0.2-1.2); Calc. Creatinine Clearance 0 mL/min (70-130); Calcium 9.5 mg/dL (7.8-10.44); Carbon Dioxide 27 mmol/L (22-29); Chloride 104 mmol/L (98-107); Estimated GFR 98; Globulin 3.9 g/dL (2.4-3.5); Glucose 85 mg/dL (70-105); Magnesium 2.1 mg/dL (1.6-2.6); Potassium 4.2 mmol/L (3.5-5.1); Protein, Total 8.3 g/dL (6.0-8.3); Sodium 141 mmol/L (136-145)
[2023-08-04 17:14] LABS: Troponin I 0.013 ng/mL (< 0.028)
[2023-08-04 20:40] LABS: SARS-CoV-2 NAA Rapid Test Not Detected (NotDetected)
== END 2023-08-04 21:10 | disposition left against medical advice (07) ==
LOC: ERS 15:25
DX: Q21.0 Ventricular septal defect (principal); I50.9 Heart failure, unspecified; I27.20 Pulmonary hypertension, unspecified; F17.210 Nicotine dependence, cigarettes, uncomplicated; Z53.21 Procedure and treatment not carried out due to patient leaving prior to being seen by health care provider; Z20.822 Contact with and (suspected) exposure to COVID-19
CPT/HCPCS: 83735; 83880; 84484; 84703; 93005; 94760; U0002

== ENCOUNTER 2024-09-28 12:00 | Emergency (ER) | payer OTHER ==
[2024-09-28] MEDS ORDERED: Sodium Chloride 0.9% 0 ML ONE (12:28)
[2024-09-28 14:08] LABS: #Basophils 0.03 10x3/uL (0.0-0.2); %Basophils 0.4 % (0.0-1.0); %Eosinophils 2.2 % (0.0-10.0); %Lymphocytes 23.7 % (21.0-51.0); %Monocytes 8.2 % (0.0-10.0); %Neutrophils 65.1 % (42.0-75.0); Hematocrit 34.4 % (36.0-47.0); Hemoglobin 11.2 g/dL (12.0-16.0); Mean Corpuscular HGB CONC 32.6 g/dL (32.0-36.0); Mean Corpuscular Hemoglobin 29.5 pg (27.0-31.0); Mean Corpuscular Volume 90.5 fL (78.0-98.0); Mean Platelet Volume 9.1 fL (7.4-10.4); Platelet Count 251 10x3/uL (130-400)
[2024-09-28 14:25] LABS: Anion Gap 11 mmol/L (10-20); BUN (Urea Nitrogen) 13 mg/dL (7.0-18.7); Calc. Creatinine Clearance 0 mL/min (70-130); Calcium 8.8 mg/dL (7.8-10.44); Carbon Dioxide 24 mmol/L (22-29); Chloride 105 mmol/L (98-107); Estimated GFR 129; Glucose 71 mg/dL (70-105); Potassium 3.7 mmol/L (3.5-5.1); Sodium 136 mmol/L (136-145)
== END 2024-09-28 14:53 | disposition short-term general hospital (02) ==
LOC: ERS 12:00 → EEVIPCON 12:00 → ERS 14:53
DX: O12.03 Gestational edema, third trimester (principal); O99.332 Smoking (tobacco) complicating pregnancy, second trimester; F17.210 Nicotine dependence, cigarettes, uncomplicated; Z3A.00 Weeks of gestation of pregnancy not specified
CPT/HCPCS: 36415; 76815; 80048; 83880; 85025